=== PATIENT | male | born 1955 | race Caucasian/White ===

== ENCOUNTER 2016-07-18 19:19 | Emergency (ER) | payer OTHER ==
[2016-07-18 19:27] VITALS: BP 134/95; PULSE 66; RESP 16; TEMP 97.5; O2SAT 97
--- NOTE | 2016-07-18 19:55 | EDPHY ---
H & P Stated Complaint: " i think i have a uti" urinary retention burning x 5 days-- hx bph Time Seen by Provider: 07/18/16 19:31 HPI/ROS: Chief complaint: Urinary urgency and burning with urination HPI: 58-year-old male presenting complaining of 5 days of lower pelvis discomfort and some burning with urination intermittently for the last 5 days. Patient states that feels similar to when he had prostatitis in March. Patient states that he had leftover Levaquin and Bactrim from that episode and took 4 doses of Levaquin this week and has not been having any significant relief. No fevers or chills. No nausea or vomiting. Does have a history of BPH. No abdominal pain. ROS: 10 point Review of Systems is negative except as noted in the HPI. Past medical history: BPH Hyperlipidemia Allergies: No known drug allergies Physical exam: Gen: Awake, Alert, No Distress HEENT: Nose: no rhinorrhea Eyes: PERRLA, EOMI Mouth: Moist mucosa Neck: Supple, no JVD Chest: nontender, lungs clear to auscultation Heart: S1, S2 normal, no murmur Abd: Soft, non-tender, no guarding Rectal: Mildly enlarged non tender prostate Back: no CVA tenderness, no midline tenderness Ext: no edema, non-tender Skin: no rash Neuro: CN II-XII intact, Sensation grossly intact, Strength 5/5 in bilateral upper and lower extremities - Personal History Current Tetanus/Diphtheria Vaccine: Unsure Current Tetanus Diphtheria and Acellular Pertussis (TDAP): Unsure - Medical/Surgical History Hx Asthma: No Hx Chronic Respiratory Disease: No Hx Diabetes: No Hx Cardiac Disease: No Hx Renal Disease: No Hx Cirrhosis: No Hx Alcoholism: No Hx HIV/AIDS: No Hx Splenectomy or Spleen Trauma: No Other PMH: cholesterol. bph - Social History Smoking Status: Never smoked Constitutional: Initial Vital Signs Temperature (C) 36.4 C 07/18/16 19:22 Heart Rate 66 07/18/16 19:22 Respiratory Rate 16 07/18/16 19:22 Blood Pressure 134/95 H 07/18/16 19:22 O2 Sat (%) 97 07/18/16 19:22 O2 Delivery Mode Room Air Allergies/Adverse Reactions: No Known Allergies Allergy (Verified 07/18/16 19:20) Home Medications: Medication Instructions Recorded Aspirin [Aspirin 81mg (OTC)] 162 mg PO DAILY 07/09/14 Atorvastatin Calcium [Lipitor 20 20 mg PO DAILY 07/09/14 mg (RX)] Eszopiclone [Lunesta] 2 mg PO HS 07/09/14 Effexor DAILY06 01/23/16 Medical Decision Making ED Course/Re-evaluation: Urinalysis is negative however this is a partially treated urine. A urine culture has been sent. Postvoid residual is 150 mL in the patient's bladder. Symptoms are likely consistent with an exacerbation of his benign prostate disease. Will discharge with referral to Urology. - Data Points Laboratory Results: 07/18/16 19:48 Urine Color YELLOW Urine Appearance HAZY Urine pH 6.0 (5.0-7.5) Ur Specific [place] 1.013 (1.002-1.030) Urine Protein NEGATIVE (NEGATIVE) Urine Ketones NEGATIVE (NEGATIVE) Urine Blood NEGATIVE (NEGATIVE) Urine Nitrate NEGATIVE (NEGATIVE) Urine Bilirubin NEGATIVE (NEGATIVE) Urine Urobilinogen NEGATIVE EU EU (0.2-1.0) Ur Leukocyte Esterase NEGATIVE (NEGATIVE) Urine Glucose NEGATIVE (NEGATIVE) Departure - Departure Disposition: Home, Routine, Self-Care Clinical Impression: Dysuria, BPH (benign prostatic hyperplasia) Condition: Good Instructions: Dysuria (ED), Benign Prostatic Hypertrophy (ED) Additional Instructions: Follow up with primary care physician and urology early next week for re- evaluation. Return emergency depart for increasing fevers, chills, nausea vomiting, or any other concerns. Referrals: Milton Sr MD [Primary Care Provider] - As per Instructions Singh Marrero MD [Medical Doctor] - As per Instructions
[2016-07-18 20:01] LABS: COLOR YELLOW; LEUKOCYTE ESTERASE,URINE NEGATIVE (NEGATIVE); NITRITE,URINE NEGATIVE (NEGATIVE)
== END 2016-07-18 20:28 | disposition home or self-care (01) ==
DX: N40.0 Benign prostatic hyperplasia without lower urinary tract symptoms (principal)